=== PATIENT | female | born 1990 | race Caucasian/White ===

== ENCOUNTER → 2016-08-22 17:15 | Observation (INO) ==
[2016-08-22 14:10] LABS: Bilirubin,Urine Negative (Negative); Blood,Urine Negative (Negative); Clarity,Urine Cloudy (Clear); Color,Urine Yellow (Yellow); Glucose,Urine (UA) Normal (Normal); Ketones,Urine Negative (Negative); Leukocyte Esterase,Urine Negative (Negative); Nitrite,Urine Negative (Negative); PH,Urine 6.5 pH Units (5.0-8.0); Protein,Urine Negative (Neg-Trace); Specific Gravity,Urine 1.013 (1.010-1.025); Urobilinogen,Urine Normal (Normal)
[2016-08-22 14:12] LABS: Bacteria,Urine Few per hpf (None-Few); Hyaline Casts,Urine None Seen per lpf (None-Few); RBC,Urine 0-3 per hpf (0-3); Squamous Epithelial Cell,Urine Many per lpf (None-Few); WBC,Urine 0-3 per hpf (0-3)
--- NOTE | 2016-08-22 14:30 | OB/GYN Progress Note ---
Date of Encounter: 08/22/16 Time of Encounter: 14:26 - Assessment and Plan (1) 33 weeks gestation of Current Visit: Yes Status: Acute (2) Vaginal discharge during in third trimester Current Visit: Yes Status: Acute Cultures pending. (3) uterine contractions in third trimester, antepartum Current Visit: Yes Status: Acute UC every 2-3 minutes on toco. Pt reports only mild cramping. SVE ft/thick/high. Plan for IV fluid bolus and terbutaline SQ. CBC collected with IV start. Continue to monitor. Subjective - Subjective Principal diagnosis: leaking fluid Interval history: 25 year-old presenting at 33weeks gestation with c/o leaking fluid. She reports small amounts of clear fluid with white particles today starting at 1000. She has also noticed some mild cramping in her lower abdomen and back as well as some increased urinary frequency. No dysuria or other complaints. Good FM. No VB. Antepartum ROS: loss of fluid, movement normal, contractions, no vaginal bleeding Objective - Vital Signs Vital Signs: Intake and Output 08/21/16 08/22/16 08/22/16 23:59 07:59 15:59 Other: Weight 76.6 kg Patient Weight 08/22/16 23:59 Weight 76.6 kg - Exam FHR: category 1 FHR comments: NST reactive Abdomen: Present: soft, gravid. Absent: tenderness Uterus: Absent: tenderness Cervical dilation: fingertip Cervix effacement: thick station: high Comments: SSE with moderate amount thick, white discharge. Negative pool, negative fern, negative nitrazine. - Labs Labs: Abnormal lab results Urine Clarity Cloudy (Clear) A 08/22/16 13:50 Ur Squamous Epith Cells Many per lpf (None-Few) H 08/22/16 13:50
[2016-08-22 14:40] LABS: Basophils # 0.1 K/mcL (0.0-0.2); Basophils % 0.3 %; Eosinophils # 0.3 K/mcL (0.0-0.6); Eosinophils % 1.7 %; Hematocrit 34.3 % (35.3-44.9); Hemoglobin 11.5 g/dL (11.5-15.4); Immature Granulocytes % 0.9 % (0-4); Lymphocytes # 3.1 K/mcL (0.6-4.6); Lymphocytes % 18.3 %; Mean Corpuscular HGB Conc 33.5 g/dL (31.6-35.5); Mean Corpuscular Hemoglobin 30.1 pg (28.0-33.3); Mean Corpuscular Volume 89.8 fL (83.0-100.0); Mean Platelet Volume 10.9 fL (9.4-12.4); Monocytes # 1.1 K/mcL (0.0-1.3); Monocytes % 6.4 %; Neutrophils # 12.3 K/mcL (1.6-8.9); Platelet Count 391 K/mcL (140-400); Red Blood Count 3.82 M/mcL (3.82-4.97); Red Cell Distribution Width 12.4 % (11.5-14.5); Segmented Neutrophils % 72.4 %
[2016-08-22 15:40] LABS: Gardnerella DNA Not Detected (Not Detect); Trichomonas DNA Not Detected (Not Detect)
[2016-08-22 15:41] LABS: Candida DNA Not Detected (Not Detect)
[~2016-08-22 17:15] MED LIST: Ringers Solution, Lactated 1,000 ML IVC ONE; Terbutaline 1 MG/ML VIAL SQ ONE
== END | disposition home or self-care (01) ==
LOC: 1NENULAB
PROVIDERS: ADMIT Obstetrics & Gynecology; ATTEND Obstetrics & Gynecology

== ENCOUNTER 2016-10-02 00:12 | Inpatient (IN) ==
--- NOTE | 2016-10-02 00:09 | OB/GYN History & Physical ---
Date of Encounter: 10/02/16 Time of Encounter: 00:00 Assessment and Plan (1) 39 weeks gestation of Current visit: Yes Status: Acute Admit for delivery (2) Spontaneous rupture of membranes Current visit: Yes Status: Acute Speculum exam: + pooling. History of Present Illness Chief complaint: Contractions and SROM HPI: Ms. Mattson is a 25 year old female at 39w0d presents to labor and delivery with contractions that started yesterday after she was checked by Dr. Velez in the office. On her way in to the ER for evaluation her water broke. Patient denies any VB and reports +FM. Patient was grossly ruptured. Patient's reports genital herpes/genital warts. Patient states she has never had Herpes outbreak "just the bumps" she has now. A perineal exam along with speculum exam was performed. Pooling noted, clear fluid. No signs of genital herpes. Condyloma noted externally near rectum. SVE 4-5 cm dilated. Blood type: A+, Rubella: immune, Hep B: Nonreactive, GBS: negative. Patient reports history of Marijuana use. Cord stat education given. Past Med Surg Social Fam HX - Past Medical History Source: patient Medical history: no medical history Psychiatric history: anxiety - Past Surgical History Surgical History: no surgical history - Social History Smoking Status: Current every day smoker Alcohol use: none Drug use: marijuana Activity Level: Independent ambulation Recent Out of Country Travel Within the Last 8 Weeks: No Exposure or Possible Exposure to Illness During Travel: No - Family History Mother Adopted: No Living Status: Still Living Hx Family Cardiac Disorders: No Hx Family Respiratory Disorders: No Hx Family Cancer: No Hx Family GI Disorders: No Hx Family Endocrine Disorder: No Hx Family Neuromuscular Disorders: No Hx Family Neurologic Disorders: No Hx Family HEENT Disorders: No Hx Family Autoimmune Disorders: No Obstetrical History - Pregnancies : 1 Para: 0 Term: 0 : 0 Ab's: 0 Livin Medications and Allergies Buspirone HCl [Buspar] 0.5 tab PO BID 08/22/16 [History] Vit Calc,Iron,Folic [ Vitamins] 1 tab PO DAILY 08/22/16 [ History] Allergies No Known Allergies Allergy (Verified 10/01/16 23:57) Review of System OB - Constitutional Constitutional ROS IM: no chills, no fever(s), no headache(s) - Cardiovascular Cardiovascular: no chest pain, no leg edema, no palpitations, no syncope - Respiratory Respiratory: no dyspnea - Gastrointestinal Gastrointestinal: cramping, no abdominal pain, no diarrhea, no heartburn, no nausea, no vomiting - Genitourinary Genitourinary: genital lesions (genital condyloma), vaginal discharge, no abnormal vaginal bleeding, no dysuria, no flank pain, no urinary frequency, no urinary urgency, no vaginal odor, no vaginal pruritis Exam - Constitutional Constitutional: well developed, well nourished, no acute distress, average body habitus - HEENT HEENT: Normocephaly, Mucus Membranes Moist - Neck Neck exam: full ROM, supple - Lungs Respiratory exam: CTAB - Cardiovascular Cardiovascular exam: RRR, +S1, +S2 - Abdomen Abdomen: Present: bowel sounds normal, gravid, non tender - Extremities Extremities exam: full ROM, normal capillary refill, normal inspection Deep Tendon Reflex Grade: 2+ Normal - Cervix Cervix: Present: discharge (grossly ruptured clear fluid). Absent: lesion Dilation: 5 (per RN) Effacement: 80 - Uterus Uterus exam: Present: normal size, normal contour (FHR 140 bpm moderate variability +15x15 accels no decels noted. No contractions noted. Speculum exam : + pooling. No lesions noted internally. ) Results All other labs normal. - VTE Reasons for not Prescribing Prophylaxis: Treatment not Indicated - Low risk for VTE
[~2016-10-02 00:12] MED LIST changes: +Famotidine 20 MG/2 ML VIAL IVP PRN; +Naloxone 0.4 MG/ML INJ IVP PRN; +Ondansetron 4 MG/2 ML VIAL IVP PRN; -Ringers Solution, Lactated 1,000 ML IVC ONE; +Ringers Solution, Lactated 1,000 ML IVC SCH; -Terbutaline 1 MG/ML VIAL SQ ONE
[2016-10-02 01:00] LABS: Basophils % 0.1 %; Eosinophils # 0.1 K/mcL (0.0-0.6); Eosinophils % 0.4 %; Hematocrit 35.1 % (35.3-44.9); Hemoglobin 11.8 g/dL (11.5-15.4); Immature Granulocytes % 0.5 % (0-4); Lymphocytes # 3.4 K/mcL (0.6-4.6); Lymphocytes % 14.3 %; Mean Corpuscular HGB Conc 33.6 g/dL (31.6-35.5); Mean Corpuscular Hemoglobin 29.6 pg (28.0-33.3); Mean Corpuscular Volume 88.2 fL (83.0-100.0); Mean Platelet Volume 11.3 fL (9.4-12.4); Monocytes # 1.4 K/mcL (0.0-1.3); Monocytes % 5.8 %; Neutrophils # 18.9 K/mcL (1.6-8.9); Platelet Count 429 K/mcL (140-400); Red Blood Count 3.98 M/mcL (3.82-4.97); Red Cell Distribution Width 12.8 % (11.5-14.5); Segmented Neutrophils % 78.9 %
[2016-10-02 01:44] LABS: Amphetamine Screen,Urine Negative ng/mL (Cutoff=1000); Barbiturate Screen,Urine Negative ng/mL (Cutoff=200); Benzodiazepines Screen,Urine Negative ng/mL (Cutoff=200); Cannabinoid Screen,Urine Negative ng/mL (Cutoff = 50); Cocaine Screen,Urine Negative ng/mL (Cutoff= 300); Opiate Screen,Urine Negative ng/mL (Cutoff=300); Phencyclidine Screen,Urine Negative ng/mL (Cutoff=25)
[2016-10-02] MEDS ORDERED: *HR* FentaNYL (PF) 100 MCG/2 ML VIAL EP ONE (02:03)
[2016-10-02] MEDS ORDERED: Bupivacaine-MPF 0.25% 10 ML VIAL EP ONE (02:03)
[2016-10-02] MEDS ORDERED: Epidural Premix (fent/bupiv) 110 ML EP ONE ×2 (02:15→09:19)
[2016-10-02] MEDS ORDERED: *HR* FentaNYL (PF) 100 MCG/2 ML VIAL ONE (02:15)
[2016-10-02] MEDS ORDERED: Epidural Premix (fent/bupiv) 110 ML EP SCH (02:15)
[2016-10-02] MEDS ORDERED: Bupivacaine-MPF 0.25% 10 ML VIAL ONE (02:15)
--- NOTE | 2016-10-02 02:45 | Anesthesia Evaluation PreOp ---
Date of Encounter: 10/02/16 Time of Encounter: 02:06 - Past History Planned Operation: labor epidural Cardiac History: Denies any Significant Hx Pulmonary History: Smoker (1/2 ppd for 6 years. Denies any lung disease or problems.) SHIPPING TEAM LEADER History: Denies Any Significant HX Other Medical History: Other (elevated WBCs (23.9). Membranes were stripped by Dr. Velez 2 days ago. Temp. 99.6. No other signs or symptoms reported by patient. Risks discussed.) Anesthesia History: No Prior Anesthetic Complications (Never had GA. No history of family anesthetic problems.) : Yes Alcohol Use: none Drug use: marijuana Medications and Allergies Buspirone HCl [Buspar] 0.5 tab PO BID 08/22/16 [History] Vit Calc,Iron,Folic [ Vitamins] 1 tab PO DAILY 08/22/16 [ History] Allergies No Known Allergies Allergy (Verified 10/01/16 23:57) - Meds/Allergy Pre-op Review Medications Reviewed: Yes Allergies Reviewed: Yes Beta Blockers on Current Med List: No Anesthesia Results - Labs 10/02/16 00:50 Anesthesia Exam vss Height: 5'4" Weight: 77kg NPO (# of Hours): 8 Pain Scale: 5 Pain Scale Used: Numeric (1 - 10) - HEENT Pupil (Motor): Pupils equal, EOMI Mallampati: II Teeth: Normal Oral Opening: Greater than 3 - SHIPPING TEAM LEADER LOC: Oriented SHIPPING TEAM LEADER Motor: Normal RUE, Normal LUE, Normal RLE, Normal LLE, Normal Face SHIPPING TEAM LEADER Sensory: Normal: RUE, LUE, RLE, LLE, Face - Cardiac Rhythm: Regular - Pulmonary Breath Sounds: bilateral Clear Respiratory Effort: Symmetrical Anesthesia Assess/Plan ASA Score: 2 Modified Primo Scale for Level of Consciousness: Cooperative, oriented, and tranquil Anesthetic Plan: Regional Monitoring Plan: Standard Monitors
--- NOTE | 2016-10-02 02:50 | Anesthesia Procedures ---
Date of Encounter: 10/02/16 Time of Encounter: 02:15 Procedures: Anesthesia - Epidural/Spinal Patient ID/Chart reviewed: Yes Patient examined: Yes OB Eval: Gestational age: 39 OB Eval: : 1 OB Eval: Hx Para: 0 OB Eval: Dilated at (cm): 4 OB Eval: Contractions: Non-stressed pattern Consent Obtained: Yes Supplemental Oxygen: None/Room Air Site Prep: Aseptic Technique, Sterile prep and drape, Povidone-Iodine 1% Patient position: upright Local Anesthetic: Lidocaine 1% Amount of Local Anesthetic used: 3 Touhy Needle Gauge: 18 Touhy Needle Depth (cm): 5 Catheter Depth at Skin (cm): 15 Test Dose (1.5% Lido + Epi): Volume given (mls): 3 Test Dose Result: Negative Loading Dose: 0.25% Marcaine (mls): 8 Loading Dose: Fentanyl (mcg): 100 Loading Dose Administered: Thru Catheter Infusion Med: 0.125% Bupivacaine w/ 2 mcg/ml Fentanyl Infusion Rate (mls/hr): [address]: Tegaderm, Tape Interspace Used: L3-L4 Loss of Resistance (AGNIESZKA): Yes Blood: No CSF: No Paresthesia: No Vitals + FHT's: 3 Vital Signs Time 0215 0230 0235 0240 BP 134/70 134/71 120/70 118/69 Pulse 90 84 99 98 FHTs 150 160 170 160
[2016-10-02] MEDS ORDERED: Acetaminophen 325 MG TABLET PO ONE (04:34)
--- NOTE | 2016-10-02 06:58 | OB Labor Progress Note ---
Date of Encounter: 10/02/16 Time of Encounter: 06:56 Labor Progress Note - Subjective Subjective: Patient resting comfortably with epidural in place. Patient denies any pain. - Cervix Cervix: 7.5/100/- - Heart Tones Heart Tones: 145 bpm moderate variability +15x15 accels no decels noted. CAt 1 tracing - [place]: 3-5 min apart - Interventions Interventions: SVE, forebag ruptured moderate amount of clear fluid noted. - Plan Plan: Continue labor management
--- NOTE | 2016-10-02 09:22 | OB Labor Progress Note ---
Date of Encounter: 10/02/16 Time of Encounter: 09:15 Labor Progress Note - Subjective Subjective: Patient is still very comfortable not feeling her contractions - Cervix Cervix: complete/100/+1 - Heart Tones Heart Tones: FHT's 140 reactive - [place]: contractions irregular every 2-5min - Plan Plan: will allow patient to labor down then we will start pushing
[2016-10-02] MEDS ORDERED: Oxytocin 20 units/ LR 1000 mL 20 UNIT/1,000 ML BAG IVC ONE (10:06)
[2016-10-02] MEDS ORDERED: Mag Hydrox/Al Hydrox/Simeth 30 ML UDC PO PRN (10:59)
[2016-10-02] MEDS ORDERED: Oxytocin 20 units/ LR 1000 mL 20 UNIT/1,000 ML BAG IVC SCH ×2 (11:30→15:38)
[2016-10-02] MEDS ORDERED: Lidocaine 1% 20 ML MDV ONE (12:27)
--- NOTE | 2016-10-02 13:35 | OB/GYN Procedure Note ---
Delivery - Delivery Date: 10/02/16 Provider: Asif Rivas Intrapartum events: febrile- temp >100.3 Delivery augmentation: pitocin Delivery monitor: external FHT, external uterine Anesthesia: local, epidural Estimated Blood Loss: 200 - (s) Infant A Infant Delivery Date: 10/02/16 Infant Delivery Time: 12:57 Presentation: vertex Position: OA Route of delivery: Gender: Female Viability: Viable Pounds: 7 Ounces: 2 Weight Gram: 3.205 kg at 1 minute: 8 at 5 mins: 9 Shoulder Dystocia: not encountered Shoulder Dystocia Maneuvers: Fabio maneuver Specimens collected: cord blood Cord: 3 umbilical vessels - Repair Episiotomy: midline Laceration Description: None - Complications Delivery complications: none Delivery comments: Patient is a 25-year-old 1 para 0 at 39-0/7 weeks who presented to labor and delivery in active labor with spontaneous rupture membranes. Patient had been campos all day upon arrival to labor and delivery in the emergency room she had spontaneous rupture membranes. She was grossly ruptured patient was campos irregularly but making cervical change. Patient progressed to complete on her own started pushing she pushed for approximately 90 minutes her contractions were regular she was augmented with Pitocin. After approximately 2-1/2 hours patient's progress to approximately +3 station but was getting exhausted and was having discomfort at the perineum so was not pushing that well. We did assist the patient with her pushing it did require an episiotomy to help give her a little bit more room before she was able to deliver a viable female in occiput anterior presentation at 1257. There was no nuchal cord, no meconium, infant was bulb suctioned on the abdomen, infant weight was 7 lbs. 1 oz. Placenta was then go spontaneously with a three- vessel cord. Boat Designer Dr. Rivas, anesthesia epidural local, estimated blood loss was 200 mL. The midline episiotomy was repaired with 3-0 Vicryl in usual fashion cervix and vagina was visualized intact. All [place] laps and sponge counts were correct 3 she will be observed 2 hours before being taken floor. - Disposition Mom disposition: stable in LDR disposition: stable in LDR
[2016-10-02] MEDS ORDERED: Ibuprofen 600 MG TABLET PO PRN (15:38)
[2016-10-02] MEDS ORDERED: *HR* HYDROcodone/Acet 5/325 mg TABLET PO PRN (15:38)
[2016-10-02] MEDS ORDERED: Acetaminophen 325 MG TABLET PO PRN (15:38)
[2016-10-03 05:40] LABS: Basophils % 0.2 %; Eosinophils # 0.2 K/mcL (0.0-0.6); Eosinophils % 0.7 %; Hematocrit 29.8 % (35.3-44.9); Immature Granulocytes % 0.6 % (0-4); Lymphocytes # 3.2 K/mcL (0.6-4.6); Lymphocytes % 15.2 %; Mean Corpuscular HGB Conc 33.9 g/dL (31.6-35.5); Mean Corpuscular Hemoglobin 30.6 pg (28.0-33.3); Mean Corpuscular Volume 90.3 fL (83.0-100.0); Mean Platelet Volume 11.7 fL (9.4-12.4); Monocytes # 1.2 K/mcL (0.0-1.3); Neutrophils # 16.1 K/mcL (1.6-8.9); Platelet Count 318 K/mcL (140-400); Red Cell Distribution Width 12.9 % (11.5-14.5); Segmented Neutrophils % 77.3 %
[2016-10-03 05:44] LABS: Hemoglobin 10.1 g/dL (11.5-15.4)
[2016-10-03 08:26] VITALS: BP 114/78
--- NOTE | 2016-10-03 08:48 | Discharge Summary ---
Date of Encounter: 10/03/16 Time of Encounter: 08:46 - Discharge Diagnosis (1) Status post vaginal delivery Priority: Primary Status: Acute - Discharge Medications Prescriptions: Ibuprofen [Motrin] 600 mg PO Q6HR PRN #60 tablet PRN Reason: Cramping Home Medications: Buspirone HCl [Buspar] 0.5 tab PO BID 08/22/16 [History] Vit Calc,Iron,Folic [ Vitamins] 1 tab PO DAILY 08/22/16 [ History] Ibuprofen [Motrin] 600 mg PO Q6HR PRN #60 tablet 10/03/16 [Rx] Allergies/Adverse Reactions: Allergies No Known Allergies Allergy (Verified 10/01/16 23:57) Data Procedures and tests throughout hospitalization: Laboratory Tests 10/02/16 10/02/16 10/03/16 00:50 01:30 04:59 WBC 23.9 H 20.8 H RBC 3.98 3.30 L Hgb 11.8 10.1 L D Hct 35.1 L 29.8 L MCV 88.2 90.3 MCH 29.6 30.6 MCHC 33.6 33.9 RDW 12.8 12.9 Plt Count 429 H 318 MPV 11.3 11.7 Immature Gran % 0.5 0.6 Seg Neutrophils % 78.9 77.3 Lymphocytes % 14.3 15.2 Monocytes % 5.8 6.0 Eosinophils % 0.4 0.7 Basophils % 0.1 0.2 Neutrophils # 18.9 H 16.1 H Lymphocytes # 3.4 3.2 Monocytes # 1.4 H 1.2 Eosinophils # 0.1 0.2 Basophils # 0.0 0.0 Urine Opiates Screen Negative Ur Barbiturates Screen Negative Ur Phencyclidine Scrn Negative Ur Amphetamines Screen Negative U Benzodiazepines Scrn Negative Urine Cocaine Screen Negative U Marijuana (THC) Screen Negative Labs on day of discharge: Labs from last 24 hours 10/03/16 04:59 WBC 20.8 H RBC 3.30 L Hgb 10.1 L D Hct 29.8 L MCV 90.3 MCH 30.6 MCHC 33.9 RDW 12.9 Plt Count 318 MPV 11.7 Immature Gran % 0.6 Seg Neutrophils % 77.3 Lymphocytes % 15.2 Monocytes % 6.0 Eosinophils % 0.7 Basophils % 0.2 Neutrophils # 16.1 H Lymphocytes # 3.2 Monocytes # 1.2 Eosinophils # 0.2 Basophils # 0.0 Date of admission: 10/02/16 00:12 Primary care physician: Rekha Ba CNP Consults: 10/02/16 15:38 Consult to Patient Accounting Representative [CONS] Routine Comment: Vaginal delivery, consult needed Discharging clinician: Opal Whiting Anticipated date of discharge: 10/03/16 - Patient Status Disposition: Home, Self-Care Condition: Good Functional capacity at discharge: independent ambulation Overall status at discharge: patient is progressing back to baseline - Discharge Instructions Follow Up With: Rekha Ba CNP [Primary Care Provider] - - Diet and Activity Activity: increase activity as tolerated Diet: advance to your usual diet Hospital Course Reason for admission: active labor, rupture of membranes Delivery: Episiotomy: midline Laceration: none Other procedures: none complications: none Discharge diagnosis: IUP at term delivered [place] baby: female Time Attestation: Total time spent providing and/or coordinating discharge services: Time Spent: Less than 30 minutes Exam - Constitutional Vitals: Temp Pulse Resp BP Pulse Ox 97.6 F 73 16 114/78 98 10/03/16 07:30 10/03/16 07:30 10/03/16 07:30 10/03/16 07:30 10/03/16 03:30 General appearance IM: A&O X 3, no acute distress - Respiratory Respiratory exam: Present: CTAB. Absent: respiratory distress - Cardiovascular Cardiovascular exam IM: Present: RRR. Absent: irregular rhythm - GI/Abdominal GI/Abdominal exam IM: normal bowel sounds Incision: normal, dry, intact - Rectal Rectal exam: deferred - Uterine Tone: Firm Uterus Position: 3 Fingers Below Umbilicus - Extremities Exam Extremities exam IM: Present: warm. Absent: calf tenderness, tenderness
[2016-10-03] MEDS ORDERED: Prenatal Vit/FA 1 EACH TABLET PO SCH ×2 (09:00)
== END 2016-10-03 10:25 | disposition home or self-care (01) | DRG 560 ==
LOC: 1NENULAB → 1NENUOBS 15:30
PROVIDERS: ADMIT Advanced Practice Midwife; ATTEND Advanced Practice Midwife

== ENCOUNTER 2021-02-12 20:01 | Observation (INO) ==
[2021-02-12 17:52] LABS: Bilirubin,Urine Negative (Negative); Blood,Urine Negative (Negative); Clarity,Urine Clear (Clear); Color,Urine Colorless (Yellow); Glucose,Urine (UA) Normal (Normal); Ketones,Urine Negative (Negative); Leukocyte Esterase,Urine Negative (Negative); Nitrite,Urine Negative (Negative); PH,Urine 6.5 pH Units (5.0-8.0); Protein,Urine Negative (Neg-Trace); Specific Gravity,Urine 1.007 (1.010-1.025); Urobilinogen,Urine Normal (Normal)
[~2021-02-12 20:01] MED LIST changes: -Famotidine 20 MG/2 ML VIAL IVP PRN; -Naloxone 0.4 MG/ML INJ IVP PRN; -Ondansetron 4 MG/2 ML VIAL IVP PRN; +Ringers Solution, Lactated 1,000 ML IVC ONE; -Ringers Solution, Lactated 1,000 ML IVC SCH; +Ringers Solution, Lactated 1,000 ML ONE
== END 2021-02-12 20:04 | disposition home or self-care (01) ==
LOC: 1NENULAB
PROVIDERS: ADMIT Advanced Practice Midwife; ATTEND Advanced Practice Midwife

== ENCOUNTER → 2021-02-19 13:00 | Observation (INO) | END | disposition home or self-care (01) | LOC: 1NENULAB | PROVIDERS: ADMIT Student in an Organized Health Care Education/Training Program; ATTEND Student in an Organized Health Care Education/Training Program ==

== ENCOUNTER 2021-02-25 10:45 | Inpatient (IN) ==
[2021-02-25] MEDS ORDERED: Naloxone 0.4 MG/ML INJ IVP PRN (10:56)
[2021-02-25] MEDS ORDERED: Lidocaine 1% 20 ML MDV ID PRN (10:56)
[2021-02-25] MEDS ORDERED: *HR* Nalbuphine 10 MG/ML AMPUL IV PRN (10:56)
[2021-02-25] MEDS ORDERED: miSOPROStoL 25 MCG TABLET PO PRN (10:56)
[2021-02-25] MEDS ORDERED: Metoclopramide 10 MG/2 ML VIAL IVP PRN (10:56)
[2021-02-25] MEDS ORDERED: Azithromycin 500 MG in 0.9 % Sodium Chloride 250 ML IVPB PRN (10:56)
[2021-02-25] MEDS ORDERED: Famotidine 20 MG/2 ML VIAL IVP PRN (10:56)
[2021-02-25] MEDS ORDERED: Ondansetron 4 MG/2 ML VIAL IVP PRN (10:56)
[2021-02-25] MEDS ORDERED: Ringers Solution, Lactated 1,000 ML IVC SCH (11:00)
[2021-02-25] MEDS ORDERED: Oxytocin 20 units/ LR 1000 mL 20 UNIT/1,000 ML BAG IVC SCH ×2 (11:00→22:17)
[2021-02-25 11:26] LABS: Basophils % 0.2 %; Eosinophils # 0.1 K/mcL (0.0-0.6); Eosinophils % 0.7 %; Hematocrit 37.1 % (35.3-44.9); Hemoglobin 12.7 g/dL (11.5-15.4); Immature Granulocytes % 0.4 % (0-4); Lymphocytes # 2.5 K/mcL (0.6-4.6); Lymphocytes % 19.2 %; Mean Corpuscular HGB Conc 34.2 g/dL (31.6-35.5); Mean Corpuscular Hemoglobin 31.6 pg (28.0-33.3); Mean Corpuscular Volume 92.3 fL (83.0-100.0); Mean Platelet Volume 11.3 fL (9.4-12.4); Monocytes # 0.7 K/mcL (0.0-1.3); Monocytes % 5.2 %; Neutrophils # 9.7 K/mcL (1.6-8.9); Platelet Count 339 K/mcL (140-400); Red Blood Count 4.02 M/mcL (3.82-4.97); Red Cell Distribution Width 12.9 % (11.5-14.5); Segmented Neutrophils % 74.3 %
[2021-02-25 11:52] LABS: Amphetamine Screen,Urine Negative ng/mL (Cutoff=1000); Barbiturate Screen,Urine Negative ng/mL (Cutoff=200); Benzodiazepines Screen,Urine Negative ng/mL (Cutoff=200); Cannabinoid Screen,Urine Positive ng/mL (Cutoff = 50); Cocaine Screen,Urine Negative ng/mL (Cutoff= 300); Opiate Screen,Urine Negative ng/mL (Cutoff=300); Phencyclidine Screen,Urine Negative ng/mL (Cutoff=25)
[2021-02-25 11:59] LABS: Influenza A PCR Negative (Negative); Influenza B PCR Negative (Negative); Resp. Syncytial Virus PCR Negative (Negative)
[2021-02-25 12:19] LABS: SARS-CoV-2 by PCR (In House) Negative (Negative)
[2021-02-25] MEDS ORDERED: Ropivacaine/PF 0.2% 20 ML VIAL EP ONE (16:14)
[2021-02-25] MEDS ORDERED: *HR* FentaNYL (PF) 100 MCG/2 ML VIAL EP ONE (16:14)
[2021-02-25] MEDS ORDERED: EPHEDrine 50 MG/ML VIAL IVP PRN (16:14)
[2021-02-25] MEDS ORDERED: Epidural Premix (fent/bupiv) 110 ML EP SCH (16:15)
[2021-02-25] MEDS ORDERED: Nicotine 14 MG PATCH.TD24 TD SCH (18:00)
[2021-02-25] MEDS ORDERED: *HR* FentaNYL (PF) 100 MCG/2 ML VIAL ONE (18:21)
[2021-02-25] MEDS ORDERED: Ropivacaine/PF 0.2% 20 ML VIAL ONE (18:21)
[2021-02-25] MEDS ORDERED: Benzocaine/Menthol 56 GM AEROSOL SPRAY TP PRN (22:17)
[2021-02-25] MEDS ORDERED: Rho Immune Globulin 1,500 UNIT SYRINGE IM PRN (22:17)
[2021-02-25] MEDS ORDERED: Ondansetron ODT 4 MG TAB.RAPDIS SL PRN (22:17)
[2021-02-25] MEDS ORDERED: Lanolin 7 G OINT...G. TP PRN (22:17)
[2021-02-25] MEDS ORDERED: Measles/Mumps/Rubella Vacc 0.5 ML VIAL SQ PRN (22:17)
[2021-02-26] MEDS: Acetaminophen 325 MG TABLET PO SCH ×2 (00:22→07:50)
[2021-02-26] MEDS: Ibuprofen 600 MG TABLET PO SCH ×2 (00:22→07:49)
[2021-02-26 04:58] LABS: Basophils % 0.2 %; Eosinophils # 0.1 K/mcL (0.0-0.6); Eosinophils % 0.3 %; Hematocrit 34.5 % (35.3-44.9); Hemoglobin 11.4 g/dL (11.5-15.4); Immature Granulocytes % 0.5 % (0-4); Lymphocytes # 2.7 K/mcL (0.6-4.6); Lymphocytes % 14.8 %; Mean Corpuscular Volume 93.8 fL (83.0-100.0); Mean Platelet Volume 11.3 fL (9.4-12.4); Monocytes % 5.3 %; Neutrophils # 14.3 K/mcL (1.6-8.9); Platelet Count 296 K/mcL (140-400); Red Blood Count 3.68 M/mcL (3.82-4.97); Red Cell Distribution Width 12.9 % (11.5-14.5); Segmented Neutrophils % 78.9 %; White Blood Count 18.1 K/mcL (4.3-11.1)
[2021-02-26 07:44] VITALS: BP 117/69; PULSE 67; TEMP 98.1; O2SAT 100
[2021-02-26] MEDS ORDERED: Cyanocobalamin (B-12) 1,000 MCG TABLET PO SCH (09:00)
[2021-02-26] MEDS ORDERED: Prenatal Vit/FA 1 EACH TABLET PO SCH (09:00)
[2021-02-26] MEDS ORDERED: NON-FORMULARY MEDICATION 1 EACH EACH (Prenatal 19 Tablet 1 TAB) PO SCH (09:00)
== END 2021-02-26 18:12 | disposition home or self-care (01) | DRG 560 ==
LOC: 1NENULAB 10:45 → 1NENUOBS 23:09
PROVIDERS: ADMIT Student in an Organized Health Care Education/Training Program; ATTEND Student in an Organized Health Care Education/Training Program